=== PATIENT | male | born 1995 | race Caucasian/White ===

== ENCOUNTER 2018-12-09 23:25 | Emergency (ER) | payer SELFPAY ==
[2018-12-09 23:28] VITALS: BP 159/98; PULSE 91; RESP 16; TEMP 36.6; O2SAT 100; BMI 23.2
--- NOTE | 2018-12-10 00:01 | ED.RN ---
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
--- NOTE | 2018-12-10 00:04 | ED.RN ---
SELENA CALLED BACK, SHE WILL BE HER TO SEE THIS PT SOON
[2018-12-10 00:17] LABS: Absolute Neutrophil Count 4.9 X10^3/uL (2.0-7.7); Basophil# 0.02 X10^3/uL; Basophil% 0.3 % (0-1); Eosinophils% 1.3 % (0-5); Hematocrit 46.3 % (40-54); Hemoglobin 15.9 g/dl (13.0-16.5); Lymphocyte % 24.2 % (19-41); Mean Corp Hgb Conc 34.3 g/gl (32-36); Mean Corpuscular Hgb 28.8 pg (27.0-32.0); Mean Corpuscular Volume 83.7 fL (80-94); Mean Platelet Vol. 11.9 fl (6.2-12.0); Monocyte# 0.59 X10^3/uL; Monocyte% 7.9 % (0-10); Neutrophil # 4.92 X10^3/uL (2.7-7.7); Platelet Count 160 K/mm3 (150-450); RBC Distribution Width CV 11.9 % (11.6-14.6); RBC Distribution Width SD 35.9 fl (35.1-43.9); Red Blood Count 5.53 M/mm3 (4.6-6.2); White Blood Count 7.5 K/mm3 (4.4-11.0)
[2018-12-10 00:24] LABS: Anion Gap 5 (5-15); BUN 20 mg/dL (7-18); Chloride 103 mmol/L (98-107); Creatinine, Serum 1.05 mg/dL (0.70-1.30); EST Glomerular Filtration Rate 93 mL/min (>60); Est Glom Filt Rate - Afr Amer 113 mL/min (>60); Estimated Creatinine Clearance 110.35 ml/min; Glucose 153 mg/dL (74-106); Potassium 3.5 mmol/L (3.5-5.1); Sodium Level 138 mmol/L (136-145)
[2018-12-10 00:26] LABS: POSITIVE COUNT NO; POSITIVE DIFFERENTIAL NO; POSITIVE MORPHOLOGY NO
--- NOTE | 2018-12-10 00:27 | ED.RN ---
CRISIS AT THE BED SIDE
[2018-12-10 00:31] LABS: Amphetamine Urine VISTA NEGATIVE (<1000 ng/mL); Barbiturate Urine VISTA NEGATIVE (< 200 ng/mL); Benzodiazepine Urine VISTA NEGATIVE (< 200 ng/mL); Cocaine Urine VISTA NEGATIVE (< 300 ng/mL); Ecstacy Urine VISTA NEGATIVE (< 500 ng/mL); Methadone Urine VISTA NEGATIVE (< 300 ng/mL); PCP Urine VISTA NEGATIVE (< 25 ng/mL); THC Urine VISTA POSITIVE (< 50 ng/mL); Vista UDS pH Range 5
--- NOTE | 2018-12-10 00:52 | ED.VISSUMM ---
- ER Visit Summary Date of Service: 12/10/18 Chief Complaint: Depression History of Present Illness: The patient is a 23 M with recent break-up. He states that he is sad and had a bad day today. Mom came over to check on him and he made the statement that he wished he was not here anymore. Patient states he was just frustrated and has no plan to harm himself. He is currently on Prozac and has been following with his primary care physician. Physical Examination: Vital signs significant for blood pressure 159/98 on arrival. Patient sitting upright in bed. He is intermittently tearful. Heart is regular rate and rhythm. Lungs sounds are clear abdomen is soft nontender. Psychiatric evaluation reveals normal speech pattern. He adamantly denies suicidal homicidal ideation. He denies any prior attempts. He does admit to depression. Test Results: CBC and chemistry studies significant only for glucose of 153. Tox is positive for cannabinoids. EtOH is 22. Emergency Department Course and Treatment: Patient was seen by Nuria from the counseling center. Close follow-up has been arranged. Patient's mother is at bedside with him. I reevaluated the patient he is comfortable going home and will return for any worsening symptoms. Treatment Plan: [] Disposition: Discharge Impression: Depression This note was generated with [employer] dictation software. It may contain incorrect words, spelling, and punctuation that were not noted in review of the chart prior to signing ED Disposition - Plan for ED Patient: Disposition: Home or Assisted Living Instructions: ED Depression Referrals: Michelle Ramirez NP-C [Primary Care Provider] - Counseling,Center [GROUP OF PHYSICIANS] - As soon as possible
== END 2018-12-10 01:09 | disposition home or self-care (01) ==
PROVIDERS: Emergency Provider Emergency Medicine; Family Provider Nurse Practitioner Adult Health; PCP Nurse Practitioner Adult Health
DX: F32.9 Major depressive disorder, single episode, unspecified (principal); Z79.899 Other long term (current) drug therapy
CPT/HCPCS: 80048; 80307; 80320; 85025; 99282; G0480